=== PATIENT | male | born 1955 | race Caucasian/White ===

== ENCOUNTER 2017-02-21 10:05 | Observation (INO) | payer MEDICARE, MEDICAID ==
[2017-02-21] VITALS (9 sets, daily range): BP systolic 158–198; BP diastolic 88–101; PULSE 63–71; RESP 16–18; TEMP 97.8–98.8; O2SAT 93–98
[~2017-02-21] VITALS: Ht 182.9 cm; Wt 110.0 kg
[~2017-02-21 10:05] MED LIST: ALPH1000 PO; BENZ1TAB PO; BUPR-86 PO; CALTTAB PO; CEPH500C3 PO; CITA20TA4 PO; DOK100TA PO; LISI-363 PO; LORTA5 PO; NUED20CA PO; OLAN10TA PO; OLAN20TA PO; RANI150T PO; SPIRCAP INH; SYMB160A INH; TRAZ150T75 PO; TYLE500T PO
--- NOTE | 2017-02-21 10:28 | PD ---
HPI Chief Complaint: Chest Pain Time Seen by Provider: 10:28 Travel History International Travel<30 days: No Contact w/Intl Traveler<30days: No Traveled to known affect area: No History of Present Illness HPI 61-year-old male came to the emergency room with history of right sided chest pain. Patient lives in a [place] [facility] and they sent him here because this morning when he woke up he was complaining about the pain. Patient is not the best historian. He has history of schizophrenia and is on a lot of psych medications. It is difficult to understand his words but he did point to the right side of his chest saying that he woke up with this pain. Pain is nonradiating to the best of my understanding. No aggravating or relieving factors identified. He has never had this kind of pain in the past. Vital signs were otherwise stable. [facility] Past Medical History Narrative Medical List of his past medical, surgical, social and family history is reviewed from the nursing note. COPD: Yes Hypertension: Yes Schizophrenia: Yes Social History Alcohol Use: No Tobacco Use: No Substance Use: No Allergies-Medications (Allergen,Severity, Reaction): Coded Allergies: No Known Allergies (Unverified , 03/03/15) Comments No known drug allergies. Reported Meds & Prescriptions Reported Meds & Active Scripts Active Reported Loperamide (Loperamide HCl) 2 Mg Cap 2 Mg PO TID PRN MAX 3 CAPSULES/24HRS Vitamin E Water Soluble (Vitamin E) 1,000 Unit Cap 1,000 Units PO DAILY Trazodone (Trazodone HCl) 150 Mg Tablet 150 Mg PO HS Symbicort Inh (Budesonide/Formoterol Fumarate) 160-4.5 Mcg/Act Aero 2 Puff INH BID Zantac (Ranitidine HCl) 150 Mg Tab 150 Mg PO BID Zyprexa (Olanzapine) 20 Mg Tab 20 Mg PO HS Zyprexa (Olanzapine) 10 Mg Tab 10 Mg PO DAILY Take after lunch with a glass of water Nuedexta 20-10 mg (Dextromethorphan HBr-Quinidine) 20 Mg-10 Mg Cap 1 Cap PO Q12HR Mobic (Meloxicam) 15 Mg Tab 15 Mg PO DAILY Lisinopril 40 Mg Tab 40 Mg PO DAILY Aricept (Donepezil HCl) 10 Mg Tablet 10 Mg PO BID Each morning and at bedtime Colace (Docusate Sodium) 100 Mg Capsule 100 Mg PO DAILY Celexa (Citalopram Hydrobromide) 20 Mg Tab 30 Mg PO DAILY Calcium 600+D (Calcium Carbonate-Cholecalciferol) 600-800 Mg-Unit Tab 1 Tab PO BID Wellbutrin SR 12 HR (Bupropion HCl) 150 Mg Tab 150 Mg PO BID Take in the morning and after lunch Benztropine (Benztropine Mesylate) 0.5 Mg Tab 1 Mg PO TID Norvasc (Amlodipine Besylate) 5 Mg Tab 5 Mg PO DAILY Tylenol Extra Strength (Acetaminophen) 500 Mg Tablet 500 Mg PO BID Narrative Medication List of his home medications reviewed from the nursing note. Review of Systems Except as stated in HPI: all other systems reviewed are Neg Cardiovascular: Positive: Chest Pain or Discomfort Physical Exam Narrative GENERAL: Awake, alert, no obvious distress SKIN: Focused skin assessment warm/dry. HEAD: Atraumatic. Normocephalic. EYES: Pupils equal and round. No scleral icterus. No injection or drainage. ENT: No nasal bleeding or discharge. Mucous membranes pink and moist. NECK: Trachea midline. No JVD. CARDIOVASCULAR: Regular rate and rhythm. No murmur appreciated. RESPIRATORY: No accessory muscle use. Clear to auscultation. Breath sounds equal bilaterally. GASTROINTESTINAL: Abdomen soft, non-tender, nondistended. Hepatic and splenic margins not palpable. MUSCULOSKELETAL: No obvious deformities. No clubbing. No cyanosis. No edema. NEUROLOGICAL: Awake and alert. No obvious cranial nerve deficits. Motor grossly within normal limits. Normal speech. PSYCHIATRIC: Appropriate mood and affect; insight and judgment normal. Data Data Last Documented VS Vital Signs Date Time Temp Pulse Resp B/P (MAP) Pulse Ox O2 Delivery O2 Flow Rate FiO2 02/21/17 12:00 64 16 177/88 (117) 94 Room Air 02/21/17 10:07 97.8 Orders Orders Electrocardiogram (02/21/17 10:38) Basic Metabolic Panel (Bmp) (02/21/17 10:38) Ckmb (Isoenzyme) Profile (02/21/17 10:38) Complete Blood Count With Diff (02/21/17 10:38) D-Dimer (02/21/17 10:38) Magnesium (Mg) (02/21/17 10:38) Prothrombin Time / Inr (Pt) (02/21/17 10:38) Act Partial Throm Time (Ptt) (02/21/17 10:38) Troponin I (02/21/17 10:38) Chest, Single Ap (02/21/17 10:38) Ecg Monitoring (02/21/17 10:38) Bilateral Bp Monitoring (02/21/17 10:38) Iv Access Insert/Monitor (02/21/17 10:38) Oximetry (02/21/17 10:38) Oxygen Administration (02/21/17 10:38) Sodium Chloride 0.9% Flush (Ns Flush) (02/21/17 10:45) Ketorolac Inj (Toradol Inj) (02/21/17 10:45) CKMB (02/21/17 10:50) CKMB% (02/21/17 10:50) Admit Order (Ed Use Only) (02/21/17 12:03) Labs Laboratory Tests Test 02/21/17 10:50 White Blood Count 8.5 TH/MM3 Red Blood Count 4.42 MIL/MM3 Hemoglobin 13.8 GM/DL Hematocrit 41.4 % Mean Corpuscular Volume 93.7 FL Mean Corpuscular Hemoglobin 31.2 PG Mean Corpuscular Hemoglobin Concent 33.3 % Red Cell Distribution Width 13.4 % Platelet Count 177 TH/MM3 Mean Platelet Volume 9.2 FL Neutrophils (%) (Auto) 80.1 % Lymphocytes (%) (Auto) 11.2 % Monocytes (%) (Auto) 8.5 % Eosinophils (%) (Auto) 0.0 % Basophils (%) (Auto) 0.2 % Neutrophils # (Auto) 6.8 TH/MM3 Lymphocytes # (Auto) 0.9 TH/MM3 Monocytes # (Auto) 0.7 TH/MM3 Eosinophils # (Auto) 0.0 TH/MM3 Basophils # (Auto) 0.0 TH/MM3 CBC Comment DIFF FINAL Differential Comment Prothrombin Time 11.0 SEC Prothromb Time International Ratio 1.0 RATIO Activated Partial Thromboplast Time 25.5 SEC D-Dimer Quantitative (PE/DVT) 0.43 MG/L FEU Blood Urea Nitrogen 14 MG/DL Creatinine 1.07 MG/DL Random Glucose 114 MG/DL Calcium Level 8.8 MG/DL Magnesium Level 2.3 MG/DL Sodium Level 139 MEQ/L Potassium Level 3.7 MEQ/L Chloride Level 106 MEQ/L Carbon Dioxide Level 26.5 MEQ/L Anion Gap 7 MEQ/L Estimat Glomerular Filtration Rate 70 ML/MIN Total Creatine Kinase 297 U/L Creatine Kinase MB 2.5 NG/ML Troponin I LESS THAN 0.02 NG/ML MDM Medical Decision Making Medical Screen Exam Complete: Yes Emergency Medical Condition: Yes Medical Record Reviewed: Yes Interpretation(s) Twelve-lead EKG was reviewed by me. Normal sinus rhythm, left axis deviation, LVH as per voltage criteria, nonspecific ST-T wave changes. Heart rate of 67 bpm. Differential Diagnosis ACS, non-STEMI, nonspecific chest pain Narrative Course 12:08 PM blood test results of back. They're within acceptable limits. D- dimer is negative. I'll admit him to the chest pain center so that the door closer can evaluate him and rule out ACS Procedures EKG Prior to Arrival: No Diagnosis Primary Impression: Chest pain Qualified Codes: R07.9 - Chest pain, unspecified Admitting Information Admitting Physician Requests: Observation Precious Torres MD Feb 21, 2017 10:28
[2017-02-21] MEDS ORDERED: KETOROLAC TROMETHAMINE 30 MG/ML (IVP) VIAL IV PUSH ONE ×2 (10:45)
[2017-02-21] MEDS ORDERED: SODIUM CHLORIDE 0.9% FLUSH 10 ML FLUSH IVF PRN ×2 (10:45)
[2017-02-21] MEDS ORDERED: ACET-822 PO ×2 (11:07)
[2017-02-21] MEDS ORDERED: AMLO5 PO ×2 (11:07)
[2017-02-21] MEDS ORDERED: NUED20CA PO ×2 (11:07)
[2017-02-21] MEDS ORDERED: SYMB160A INH ×2 (11:07)
[2017-02-21] MEDS ORDERED: ZANT150T2 PO ×2 (11:07)
[2017-02-21] MEDS ORDERED: COLA100C PO ×2 (11:07)
[2017-02-21] MEDS ORDERED: TRAZ1TAB45 PO ×2 (11:07)
[2017-02-21] MEDS ORDERED: LISI40TA PO ×2 (11:07)
[2017-02-21] MEDS ORDERED: CALC1TAB37 PO ×2 (11:07)
[2017-02-21] MEDS ORDERED: CELE20TA PO ×2 (11:07)
[2017-02-21] MEDS ORDERED: LOPE2CAP PO ×2 (11:07)
[2017-02-21] MEDS ORDERED: BENZ0.5T PO ×2 (11:07)
[2017-02-21] MEDS ORDERED: VITA-98 PO ×2 (11:07)
[2017-02-21] MEDS ORDERED: ARIC10TA2 PO ×2 (11:07)
[2017-02-21] MEDS ORDERED: BUPR150CR PO ×2 (11:07)
[2017-02-21] MEDS ORDERED: ZYPR10TA PO ×2 (11:07)
[2017-02-21] MEDS ORDERED: MOBI15TA PO ×2 (11:07)
[2017-02-21] MEDS ORDERED: ZYPR20TA PO ×2 (11:07)
--- NOTE | 2017-02-21 11:08 | RADRPT ---
EXAM DATE/TIME: 02/21/2017 10:43 [facility] COMPARISON: CHEST SINGLE AP, March 03, 2015, 14:19. INDICATIONS : Short of breath, nausea, dizziness. MEDICAL HISTORY : Chronic obstructive pulmonary disease. SURGICAL HISTORY : None. ENCOUNTER: Initial ACUITY: 3 days PAIN SCORE: 0/10 LOCATION: Bilateral chest FINDINGS: A single view of the chest demonstrates the lungs to be symmetrically aerated without evidence of mas s, infiltrate or effusion. The cardiomediastinal contours are unremarkable. Osseous structures are intact. CONCLUSION: No acute disease. Tomer Maloney MD FACR on February 21, 2017 at 11:07 Board Certified Radiologist. This report was verified electronically.
[2017-02-21 11:40] LABS: AUTOMATED NEUTROPHIL # 6.8 TH/MM3 (1.8-7.7); BASOPHIL % 0.2 % (0.0-2.0); HEMATOCRIT 41.4 % (39.0-51.0); HEMOGLOBIN 13.8 GM/DL (13.0-17.0); LYMPH % 11.2 % (9.0-44.0); LYMPHOCYTE # 0.9 TH/MM3 (1.0-4.8); MEAN CELL VOLUME 93.7 FL (80.0-100.0); MEAN CORPUSCULAR HEMOGLOBIN 31.2 PG (27.0-34.0); MEAN CORPUSCULAR HGB CONC 33.3 % (32.0-36.0); MEAN PLATELET VOLUME 9.2 FL (7.0-11.0); MONO % 8.5 % (0.0-8.0); MONOCYTE # 0.7 TH/MM3 (0-0.9); NEUT % 80.1 % (16.0-70.0); PLATELET COUNT 177 TH/MM3 (150-450); RED BLOOD COUNT 4.42 MIL/MM3 (4.50-5.90); RED CELL DISTRIBUTION WIDTH 13.4 % (11.6-17.2); WHITE BLOOD COUNT 8.5 TH/MM3 (4.0-11.0)
[2017-02-21 11:43] LABS: TROPONIN I LESS THAN 0.02 NG/ML (0.02-0.05)
[2017-02-21 11:47] LABS: BICARBONATE 26.5 MEQ/L (21.0-32.0); BLOOD UREA NITROGEN 14 MG/DL (7-18); CALCIUM 8.8 MG/DL (8.5-10.1); CHLORIDE 106 MEQ/L (98-107); CREATININE 1.07 MG/DL (0.60-1.30); D-DIMER 0.43 MG/L FEU (0.00-0.50); GLOMERULAR FILTRATION RATE 70 ML/MIN (>89); GLUCOSE,RANDOM 114 MG/DL (74-106); MAGNESIUM 2.3 MG/DL (1.5-2.5); SODIUM (NA) 139 MEQ/L (136-145)
--- NOTE | 2017-02-21 12:38 | HHI.HP ---
HPI Primary Care Physician Unknown Chief Complaint Chest pain History of Present Illness 61-year-old male who resides at a senior care and is a poor historian presents to emergency room for further evaluation of chest pain. Onset upon waking up. Location right anterior chest. Made worse when moving right shoulder. Duration has been constant. Associated symptoms of shortness of breath relates to current nasal congestion. No known precipitating or relieving factors. Endorses he is a current smoker. Review of Systems General: No fatigue,weakness, fever, chills. HEENT: Current nasal congestion CV: Continues to have chest pain as stated above. RESP: No SOB, cough, or sputum production. Current smoker. GI: No nausea, vomiting, or bowel changes. EXT: No lower leg edema MS: As stated above, right anterior chest pain since this am made worse with movement of right shoulder. No change in ROM or recent injury. NEURO: No LOC, motor/sensory deficits PSYCH: No anxiety or depression Past Family Social History Allergies: Coded Allergies: No Known Allergies (Unverified , 03/03/15) Past Medical History Past medical history obtained from medical record as patient is a poor historian. Hypertension, schizophrenia, COPD Reported Medications Reported Meds & Active Scripts Active Reported Loperamide (Loperamide HCl) 2 Mg Cap 2 Mg PO TID PRN MAX 3 CAPSULES/24HRS Vitamin E Water Soluble (Vitamin E) 1,000 Unit Cap 1,000 Units PO DAILY Trazodone (Trazodone HCl) 150 Mg Tablet 150 Mg PO HS Symbicort Inh (Budesonide/Formoterol Fumarate) 160-4.5 Mcg/Act Aero 2 Puff INH BID Zantac (Ranitidine HCl) 150 Mg Tab 150 Mg PO BID Zyprexa (Olanzapine) 20 Mg Tab 20 Mg PO HS Zyprexa (Olanzapine) 10 Mg Tab 10 Mg PO DAILY Take after lunch with a glass of water Nuedexta 20-10 mg (Dextromethorphan HBr-Quinidine) 20 Mg-10 Mg Cap 1 Cap PO Q12HR Mobic (Meloxicam) 15 Mg Tab 15 Mg PO DAILY Lisinopril 40 Mg Tab 40 Mg PO DAILY Aricept (Donepezil HCl) 10 Mg Tablet 10 Mg PO BID Each morning and at bedtime Colace (Docusate Sodium) 100 Mg Capsule 100 Mg PO DAILY Celexa (Citalopram Hydrobromide) 20 Mg Tab 30 Mg PO DAILY Calcium 600+D (Calcium Carbonate-Cholecalciferol) 600-800 Mg-Unit Tab 1 Tab PO BID Wellbutrin SR 12 HR (Bupropion HCl) 150 Mg Tab 150 Mg PO BID Take in the morning and after lunch Benztropine (Benztropine Mesylate) 0.5 Mg Tab 1 Mg PO TID Norvasc (Amlodipine Besylate) 5 Mg Tab 5 Mg PO DAILY Tylenol Extra Strength (Acetaminophen) 500 Mg Tablet 500 Mg PO BID Active Ordered Medications Current Medications Medications (Trade) Dose Ordered Sig/Karthik Route Start Time Stop Time Status Last Admin (NS Flush) 2 ml UNSCH PRN IVF 02/21/17 10:45 (NS Flush) 2 ml UNSCH PRN IV FLUSH 02/21/17 12:45 UNV (NS Flush) 2 ml BID IV FLUSH 02/21/17 21:00 UNV (Tylenol) 500 mg Q4H PRN PO 02/21/17 12:45 UNV (Zofran Inj) 4 mg Q6H PRN IV PUSH 02/21/17 12:45 UNV (Nitrostat Sl) 0.4 mg Q5M PRN SL 02/21/17 12:45 UNV (Aspirin) 325 mg DAILY PO 02/22/17 09:00 UNV Family History Unknown Social History Known hypertension. No known hyperlipidemia or diabetes. Current smoker one pack/daily. Reports occasional beer. Resides in a senior care. Past medical testing Doesn't recall ever having any cardiac testing. Physical Exam Vital Signs Vital Signs Date Time Temp Pulse Resp B/P (MAP) Pulse Ox O2 Delivery O2 Flow Rate FiO2 02/21/17 10:41 63 17 162/101 (121) 98 Room Air 02/21/17 10:25 98 Room Air 02/21/17 10:25 98 Room Air 02/21/17 10:25 66 20 92 Room Air 02/21/17 10:07 97.8 71 18 198/97 (130) 96 Room Air Physical Exam GENERAL: Alert WN, WD, NAD, male who appears older than stated age who is a poor historian and difficult to understand. Speaks mumbled tone. HEAD: NC, AT EYES: Sclera clear, conjunctiva without injection ENT: Mucous membranes pink and moist CV: RRR, without murmur, rub, gallop, no JVD, S1-S2 no S3-S4. RESP: diminished lungs throughout bilateral, no crackles, wheeze, rhonchi, symmetrical chest rise, nonlabored, able to speak in full sentences ABD: Soft, NT, ND EXT: Pulses +24, no dependent edema MS: Normal tone 4 extremities, no obvious deformities, full range of motion. right anterior chest pain reproducible with palpation. NEURO: CN II through CN XII grossly intact, motor strength 5/5 PSYCH: A+O 3, pleasant affect, appropriate speech, appropriate mood and affect , insight and judgment SKIN: Normal turgor, normal texture, even hair distribution Laboratory Laboratory Tests Test 02/21/17 10:50 White Blood Count 8.5 Red Blood Count 4.42 Hemoglobin 13.8 Hematocrit 41.4 Mean Corpuscular Volume 93.7 Mean Corpuscular Hemoglobin 31.2 Mean Corpuscular Hemoglobin Concent 33.3 Red Cell Distribution Width 13.4 Platelet Count 177 Mean Platelet Volume 9.2 Neutrophils (%) (Auto) 80.1 Lymphocytes (%) (Auto) 11.2 Monocytes (%) (Auto) 8.5 Eosinophils (%) (Auto) 0.0 Basophils (%) (Auto) 0.2 Neutrophils # (Auto) 6.8 Lymphocytes # (Auto) 0.9 Monocytes # (Auto) 0.7 Eosinophils # (Auto) 0.0 Basophils # (Auto) 0.0 CBC Comment DIFF FINAL Differential Comment Prothrombin Time 11.0 Prothromb Time International Ratio 1.0 Activated Partial Thromboplast Time 25.5 D-Dimer Quantitative (PE/DVT) 0.43 Blood Urea Nitrogen 14 Creatinine 1.07 Random Glucose 114 Calcium Level 8.8 Magnesium Level 2.3 Sodium Level 139 Potassium Level 3.7 Chloride Level 106 Carbon Dioxide Level 26.5 Anion Gap 7 Estimat Glomerular Filtration Rate 70 Total Creatine Kinase 297 Creatine Kinase MB 2.5 Troponin I LESS THAN 0.02 Result Diagram: 02/21/17 1050 02/21/17 1050 Imaging Last Impressions Chest X-Ray 02/21/17 1038 Signed Impressions: Service Date/Time: Tuesday, February 21, 2017 10:43 - CONCLUSION: No acute disease. Tomer Maloney MD FACR Course EKG Caprini VTE Risk Assessment Caprini VTE Risk Assessment: Mod/High Risk (score >= 2) Caprini Risk Assessment Model Point Value = 1 Point Value = 2 Point Value = 3 Point Value = 5 Age 41-60 Minor surgery BMI > 25 kg/m2 Swollen legs Varicose veins or History of unexplained or recurrent spontaneous Oral contraceptives or hormone replacement Sepsis (< 1 month) Serious lung disease, including pneumonia (< 1 month) Abnormal pulmonary function Acute myocardial infarction Congestive heart failure (< 1 month) History of inflammatory bowel disease Medical patient at bed rest Age 61-74 Arthroscopic surgery Major open surgery (> 45 min) Laparoscopic surgery (> 45 min) Malignancy Confined to bed (> 72 hours) Immobilizing plaster cast Central venous access Age >= 75 History of VTE Family history of VTE Factor V Leiden Prothrombin [id number] Lupus anticoagulant Anticardiolipin antibodies Elevated serum homocysteine Heparin-induced thrombocytopenia Other congenital or acquired thrombophilia Stroke (< 1 month) Elective arthroplasty Hip, pelvis, or leg fracture Acute spinal cord injury (< 1 month) Prophylaxis Regimen Total Risk Factor Score Risk Level Prophylaxis Regimen 0-1 Low Early ambulation 2 Moderate Order ONE of the following: *Sequential Compression Device (SCD) *Heparin 5000 units SQ BID 3-4 Higher Order ONE of the following medications: *Heparin 5000 units SQ TID *Enoxaparin/Lovenox 40 mg SQ daily (WT < 150 kg, CrCl > 30 mL/min) *Enoxaparin/Lovenox 30 mg SQ daily (WT < 150 kg, CrCl > 10-29 mL/min) *Enoxaparin/Lovenox 30 mg SQ BID (WT < 150 kg, CrCl > 30 mL/min) AND/OR *Sequential Compression Device (SCD) 5 or more Highest Order ONE of the following medications: *Heparin 5000 units SQ TID (Preferred with Epidurals) *Enoxaparin/Lovenox 40 mg SQ daily (WT < 150 kg, CrCl > 30 mL/min) *Enoxaparin/Lovenox 30 mg SQ daily (WT < 150 kg, CrCl > 10-29 mL/min) *Enoxaparin/Lovenox 30 mg SQ BID (WT < 150 kg, CrCl > 30 mL/min) AND *Sequential Compression Device (SCD) Assessment and Plan Assessment and Plan #1 Atypical chest pain-admitted to chest pain center. Seen and evaluated by Dr. Agustin Romero. Plan was to ruled out with 2 sets of EKGs and cardiac enzymes, followed by a chemical stress test however patient had caffeine today. Resting images can be done this afternoon and stress images in morning. Patient agreeable to plan. #2 Hypertension-continue amlodipine and lisinopril #3 Schizophrenia-continue all home antipsychotic medications #4 Tobacco use-is encouraged and stressed the importance of tobacco cessation. Instructed him to quit smoking. #5 GERD-continue ranitidine Nancy Welch Feb 21, 2017 12:38
[2017-02-21] MEDS ORDERED: NITROGLYCERIN 0.4 MG SL 25 TABS/BTL SL PRN ×2 (12:45)
[2017-02-21] MEDS ORDERED: ACETAMINOPHEN 500 MG CPLT PO PRN ×2 (12:45)
[2017-02-21] MEDS ORDERED: ONDANSETRON HCL 4 MG/2 ML VIAL IV PUSH PRN ×2 (12:45)
[2017-02-21] MEDS ORDERED: SODIUM CHLORIDE 0.9% FLUSH 10 ML FLUSH IV FLUSH PRN ×2 (12:45)
[2017-02-21 14:26] LABS: TROPONIN I LESS THAN 0.02 NG/ML (0.02-0.05)
[2017-02-21 17:57] LABS: TROPONIN I LESS THAN 0.02 NG/ML (0.02-0.05)
[2017-02-21] MEDS ORDERED: PILL SPLITTER OTHER PRN ×2 (18:45)
[2017-02-21] MEDS: BENZTROPINE MESYLATE 1 MG TAB PO SCH ×2 (18:53)
[2017-02-21] MEDS ORDERED: NON-FORMULARY DRUG (Donepezil HCl (Aricept) 10 MG) PO SCH ×2 (21:00)
[2017-02-21] MEDS ORDERED: OLANZapine 10 MG TAB PO SCH ×2 (21:00)
[2017-02-21] MEDS ORDERED: NON-FORMULARY DRUG (Dextromethorphan HBr-Quinidine (Nuedexta 20-10 mg) 1 CAP) PO SCH ×2 (21:00)
[2017-02-21] MEDS ORDERED: CALCIUM CARBONATE CHOLECALCIFEROL PO SCH ×2 (21:00)
[2017-02-21] MEDS ORDERED: traZODone HCL 50 MG TAB PO SCH ×2 (21:00)
[2017-02-21] MEDS ORDERED: NON-FORMULARY DRUG (Trazodone 150 MG) PO SCH ×2 (21:00)
[2017-02-21] MEDS ORDERED: DEXTROMETHORPHAN PO SCH ×2 (21:00)
[2017-02-21] MEDS ORDERED: NON-FORMULARY DRUG (Ranitidine (Zantac) 150 MG) PO SCH ×2 (21:00)
[2017-02-21] MEDS ORDERED: QUINIDINE PO SCH ×2 (21:00)
[2017-02-21] MEDS: CALCIUM/VITAMIN D 250 MG/125 U TAB PO SCH ×2 (21:37)
[2017-02-21] MEDS: DONEPEZIL HCL 5 MG TAB PO SCH ×2 (21:39)
[2017-02-21] MEDS: FAMOTIDINE 20 MG TAB PO SCH ×2 (21:40)
[2017-02-21] MEDS: buPROPion HCL 150 MG SUSTAINED RELEASE TAB PO SCH ×2 (21:40)
[2017-02-21] MEDS: SODIUM CHLORIDE 0.9% FLUSH 10 ML FLUSH IV FLUSH SCH ×2 (21:41)
[2017-02-21] MEDS: BUDESONIDE-FORMOTEROL 160/4.5 MCG INHALER INH SCH ×2 (21:41)
[2017-02-22 03:33] VITALS: BP 156/97; PULSE 74; RESP 19; TEMP 98.7; O2SAT 94
[2017-02-22 04:10] VITALS: PULSE 73
[2017-02-22 08:11] VITALS: BP 182/98; PULSE 82; RESP 19; TEMP 98.7; O2SAT 93
[2017-02-22] MEDS ORDERED: ASPIRIN 325 MG TAB PO SCH ×2 (09:00)
[2017-02-22] MEDS ORDERED: LISINOPRIL 20 MG TAB PO SCH ×2 (09:00)
[2017-02-22] MEDS ORDERED: amLODIPine BESYLATE 5 MG TAB PO SCH ×2 (09:00)
[2017-02-22] MEDS ORDERED: OLANZapine 10 MG TAB PO SCH ×2 (09:00)
[2017-02-22] MEDS ORDERED: NON-FORMULARY DRUG (Lisinopril 40 MG) PO SCH ×2 (09:00)
[2017-02-22] MEDS: SODIUM CHLORIDE 0.9% FLUSH 10 ML FLUSH IV FLUSH SCH ×2 (09:00)
[2017-02-22] MEDS ORDERED: CITALOPRAM HYDROBROMIDE 20 MG TAB PO SCH ×2 (09:00)
[2017-02-22] MEDS: DONEPEZIL HCL 5 MG TAB PO SCH ×2 (09:38)
[2017-02-22] MEDS: FAMOTIDINE 20 MG TAB PO SCH ×2 (09:39)
[2017-02-22] MEDS: buPROPion HCL 150 MG SUSTAINED RELEASE TAB PO SCH ×2 (09:39)
[2017-02-22] MEDS: CALCIUM/VITAMIN D 250 MG/125 U TAB PO SCH ×2 (09:40)
[2017-02-22] MEDS: BENZTROPINE MESYLATE 1 MG TAB PO SCH ×4 (09:40→13:27)
[2017-02-22] MEDS: BUDESONIDE-FORMOTEROL 160/4.5 MCG INHALER INH SCH ×2 (09:41)
[2017-02-22] MEDS ORDERED: REGADENOSON INJ 0.4 MG/5 ML SYR ONE ×2 (10:30)
--- NOTE | 2017-02-22 11:47 | RADRPT ---
EXAM DATE/TIME: 02/21/2017 16:02 [facility] COMPARISON: No previous studies available for comparison. INDICATIONS : Right sided chest pain for one day. Angina. DOSE: 30.1 mCi Tc99m Myoview at stress. 30.2 mCi Tc99m Myoview at rest. 0.4 mg Lexiscan STRESS SYMPTOMS: None. EJECTION FRACTION: 35% MEDICAL HISTORY : Chronic obstructive pulmonary disease. Hypertension. SURGICAL HISTORY : None. ENCOUNTER: Initial ACUITY: 1 day PAIN SCALE: 5/10 LOCATION: Right chest TECHNIQUE: The patient underwent pharmacologic stress with infusion of prescribed dose. Continuous ECG tracing was monitored during stress. Gated SPECT imaging was performed after stress and conventional SPECT i maging was performed at rest. The examination was performed on a SPECT/CT scanner, both attenuation and non-corrected datasets were reviewed. FINDINGS: DISTRIBUTION: The maximum perfused segment at stress is in the septal wall. PERFUSION STUDY: The pattern of perfusion at stress is within normal limits. GATED STUDY: Diffuse global hypokinesis. CONCLUSION: 1. No evidence of ischemic myocardial changes. 2. Diffuse global hypokinesis with a cardiac ejection fraction of 35%. RISK CATEGORY: low Lorenzo Stoll MD on February 22, 2017 at 11:44 Board Certified Radiologist. This report was verified electronically.
[2017-02-22 11:58] VITALS: BP 157/98; PULSE 108; RESP 18; TEMP 98.9; O2SAT 93
--- NOTE | 2017-02-22 12:22 | HHI.DCPOC ---
Discharge Care Plan Diagnosis: (1) Tobacco abuse (2) Chest pain, atypical (3) schizophrenia by history (4) HTN (hypertension) Goals to Promote Your Health * To prevent worsening of your condition and complications * To maintain your health at the optimal level Directions to Meet Your Goals Take your medications as prescribed Follow your dietary instruction Follow activity as directed Keep your appointments as scheduled Take your immunizations and boosters as scheduled If your symptoms worsen call your PCP, if no PCP go to Urgent Care Center or Emergency Room Smoking is Dangerous to Your Health. Avoid second hand smoke Call the 24-hour hour crisis hotline for domestic abuse at Ayad Rodriguez Feb 22, 2017 12:22
--- NOTE | 2017-02-22 12:22 | HHI.DCPOC ---
Discharge Care Plan Diagnosis: (1) Tobacco abuse (2) Chest pain, atypical (3) schizophrenia by history (4) HTN (hypertension) Goals to Promote Your Health * To prevent worsening of your condition and complications * To maintain your health at the optimal level Directions to Meet Your Goals Take your medications as prescribed Follow your dietary instruction Follow activity as directed Keep your appointments as scheduled Take your immunizations and boosters as scheduled If your symptoms worsen call your PCP, if no PCP go to Urgent Care Center or Emergency Room Smoking is Dangerous to Your Health. Avoid second hand smoke Call the 24-hour hour crisis hotline for domestic abuse at Ayad Rodriguez Feb 22, 2017 12:22
--- NOTE | 2017-02-22 12:22 | HHI.DCPOC ---
Discharge Care Plan Diagnosis: (1) Tobacco abuse (2) Chest pain, atypical (3) schizophrenia by history (4) HTN (hypertension) Goals to Promote Your Health * To prevent worsening of your condition and complications * To maintain your health at the optimal level Directions to Meet Your Goals Take your medications as prescribed Follow your dietary instruction Follow activity as directed Keep your appointments as scheduled Take your immunizations and boosters as scheduled If your symptoms worsen call your PCP, if no PCP go to Urgent Care Center or Emergency Room Smoking is Dangerous to Your Health. Avoid second hand smoke Call the 24-hour hour crisis hotline for domestic abuse at Ayad Rodriguez Feb 22, 2017 12:22
--- NOTE | 2017-02-23 08:15 | EKG ---
Date Performed: 02/21/2017 Time Performed: 17:18:42 PTAGE: 61 years EKG: Sinus rhythm MINIMAL VOLTAGE CRITERIA FOR LVH, CONSIDER NORMAL VARIANT BORDERLINE ECG PREVIOUS TRACING : 02/21/2017 13.37 Since previous tracing, no significant change noted DOCTOR: Agustin Romero Interpretating Date/Time 02/23/2017 08:15:04
--- NOTE | 2017-02-23 08:18 | EKG ---
Date Performed: 02/21/2017 Time Performed: 13:37:17 PTAGE: 61 years EKG: Sinus rhythm MINIMAL VOLTAGE CRITERIA FOR LVH, CONSIDER NORMAL VARIANT BORDERLINE ECG PREVIOUS TRACING : 02/21/2017 10.25 Since previous tracing, no significant change noted DOCTOR: Agustin Romero Interpretating Date/Time 02/23/2017 08:17:02
--- NOTE | 2017-02-23 08:19 | EKG ---
Date Performed: 02/21/2017 Time Performed: 10:25:52 PTAGE: 61 years EKG: Sinus rhythm MINIMAL VOLTAGE CRITERIA FOR LVH, CONSIDER NORMAL VARIANT BORDERLINE ECG PREVIOUS TRACING : 03/03/2015 14.37 Since previous tracing, no significant change noted DOCTOR: Agustin Romero Interpretating Date/Time 02/23/2017 08:17:53
--- NOTE | 2017-02-23 08:21 | TR ---
Date Performed: 02/22/2017 Time Performed: 10:27:24 DOCTOR: Agustin Romero DRUG LIST: CLINICAL HISTORY: ANGINA REASON FOR TEST: Angina REASON FOR ENDING: OBSERVATION: CONCLUSION: Lexiscan stress test was performed under standard four minute protocol. Radionuclid e was injected one minute prior to ending the test. No electrocardiographic abormalities were present to suggest ischemia. Nuclear imaging and interpretation are pending. COMMENTS:
== END 2017-02-22 15:41 ==
LOC: NEPE 10:05 → NEDA 12:05 → NEPHCDU 14:26 → NEDA 02-22 02:07
PROVIDERS: ADMIT Internal Medicine Cardiovascular Disease; ATTEND Internal Medicine Cardiovascular Disease
DX: R07.9 Chest pain, unspecified (principal); I10 Essential (primary) hypertension; F20.9 Schizophrenia, unspecified; J44.9 Chronic obstructive pulmonary disease, unspecified; K21.9 Gastro-esophageal reflux disease without esophagitis; R94.31 Abnormal electrocardiogram [ECG] [EKG]; F17.200 Nicotine dependence, unspecified, uncomplicated
CPT/HCPCS: 71010; 78452; 80048; 82550; 82552; 83735; 84484; 85025; 85379; 85610; 85730; 93005; 93017; 96374; 99285; A9502; G0378; J1885; J2785

== ENCOUNTER 2017-10-08 05:14 | Observation (INO) | payer MEDICARE, MEDICAID ==
[~2017-10-08] VITALS: Ht 185.4 cm; Wt 100.0 kg
[~2017-10-08 05:14] MED LIST changes: +ACET-822 PO; -ALPH1000 PO; +AMLO5 PO; +ARIC10TA9 PO; +BENZ0.5T PO; -BENZ1TAB PO; -BUPR-86 PO; +BUPR150CR PO; +CALC1TAB37 PO; -CALTTAB PO; +CELE20TA PO; -CEPH500C3 PO; -CITA20TA4 PO; +COLA100C5 PO; -DOK100TA PO; -LISI-363 PO; +LISI40TA PO; +LOPE2CAP PO; -LORTA5 PO; +MOBI15TA PO; -OLAN10TA PO; -OLAN20TA PO; -RANI150T PO; -SPIRCAP INH; -TRAZ150T75 PO; +TRAZ1TAB14 PO; -TYLE500T PO; +VITA-141 PO; +ZANT150T2 PO; +ZYPR10TA PO; +ZYPR20TA PO
[2017-10-08 05:20] VITALS: BP 185/98; PULSE 65; RESP 17; O2SAT 94
[2017-10-08 05:40] LABS: AUTOMATED NEUTROPHIL # 5.9 TH/MM3 (1.8-7.7); BASOPHIL % 0.2 % (0.0-2.0); HEMATOCRIT 41.3 % (39.0-51.0); HEMOGLOBIN 13.7 GM/DL (13.0-17.0); MEAN CELL VOLUME 92.6 FL (80.0-100.0); MEAN CORPUSCULAR HEMOGLOBIN 30.8 PG (27.0-34.0); MEAN CORPUSCULAR HGB CONC 33.2 % (32.0-36.0); MEAN PLATELET VOLUME 9.3 FL (7.0-11.0); MONO % 8.3 % (0.0-8.0); MONOCYTE # 0.6 TH/MM3 (0-0.9); NEUT % 78.5 % (16.0-70.0); PLATELET COUNT 165 TH/MM3 (150-450); RED BLOOD COUNT 4.46 MIL/MM3 (4.50-5.90); RED CELL DISTRIBUTION WIDTH 13.8 % (11.6-17.2); WHITE BLOOD COUNT 7.5 TH/MM3 (4.0-11.0)
[2017-10-08] MEDS ORDERED: ASPI-516 CHEW (05:40)
[2017-10-08] MEDS ORDERED: ATOR10TA15 PO (05:40)
[2017-10-08 05:58] LABS: PROTHROMBIN TIME - PATIENT 10.4 SEC (9.8-11.6)
--- NOTE | 2017-10-08 05:58 | PD ---
HPI Chief Complaint: Chest Pain Time Seen by Provider: 05:20 Travel History International Travel<30 days: No Contact w/Intl Traveler<30days: No Traveled to known affect area: No History of Present Illness HPI The patient is a 62 year old male who presents to the [facility] emergency department with a history of chest pain that he reports awoken from sound sleep prior to arrival. He reports that the pain has been constant and is in the left side of his chest. The patient denies having any radiation of pain the patient has difficulty quantifying the character of the pain. He reports that the pain is just "a pain". He denies having any nausea or vomiting associated with this. He also denies having any diaphoresis or shortness of breath. He reports that he does occasionally have indigestion. Unfortunately, the patient is a poor historian regarding his medical history. The patient also has mumbling speech making it difficult to understand what he is saying. From reviewing the record, the patient usually speaks in this fashion. On review of systems otherwise, the patient denies having any known recent fevers, cough or congestion, neck pain, abdominal pain, diarrhea, urinary symptoms, or neurologic symptoms. [facility] Past Medical History Narrative Medical The patient's past medical history is significant for according to the electronic medical record hypertension, hyperlipidemia, schizophrenia, COPD, indigestion. Alzheimer's Disease: Yes Anxiety: Yes Depression: Yes Heart Rhythm Problems: No Cardiac Catheterization: No Cardiovascular Problems: No High Cholesterol: No Congestive Heart Failure: No COPD: Yes Diabetes: No Diminished Hearing: No Hypertension: Yes Schizophrenia: Yes ?: Not Past Surgical History Narrative Surgical The patient's past surgical history is reportedly none. Coronary Artery Bypass Graft: No Social History Alcohol Use: Yes (Occasional use) Tobacco Use: Yes (1 pack per day) Substance Use: No Allergies-Medications (Allergen,Severity, Reaction): Coded Allergies: No Known Allergies (Unverified Allergy, Unknown, 10/08/17) Reported Meds & Prescriptions Reported Meds & Active Scripts Active Reported Atorvastatin (Atorvastatin Calcium) 10 Mg Tab 10 Mg PO HS Aspirin 81 Mg Chew 81 Mg CHEW ONCE Vitamin E Water Soluble (Vitamin E) 1,000 Unit Cap 1,000 Units PO DAILY Trazodone (Trazodone HCl) 150 Mg Tablet 150 Mg PO HS Symbicort Inh (Budesonide/Formoterol Fumarate) 160-4.5 Mcg/Act Aero 2 Puff INH BID Zantac (Ranitidine HCl) 150 Mg Tab 150 Mg PO BID Zyprexa (Olanzapine) 20 Mg Tab 20 Mg PO HS Zyprexa (Olanzapine) 10 Mg Tab 10 Mg PO DAILY Take after lunch with a glass of water Nuedexta 20-10 mg (Dextromethorphan HBr-Quinidine) 20 Mg-10 Mg Cap 1 Cap PO Q12HR Mobic (Meloxicam) 15 Mg Tab 15 Mg PO DAILY Lisinopril 40 Mg Tab 40 Mg PO DAILY Aricept (Donepezil HCl) 10 Mg Tablet 10 Mg PO BID Each morning and at bedtime Colace (Docusate Sodium) 100 Mg Capsule 100 Mg PO DAILY Celexa (Citalopram Hydrobromide) 20 Mg Tab 30 Mg PO DAILY Calcium 600+D (Calcium Carbonate-Cholecalciferol) 600-800 Mg-Unit Tab 1 Tab PO BID Wellbutrin SR 12 HR (Bupropion HCl) 150 Mg Tab 150 Mg PO BID Take in the morning and after lunch Benztropine (Benztropine Mesylate) 0.5 Mg Tab 1 Mg PO TID Norvasc (Amlodipine Besylate) 5 Mg Tab 5 Mg PO DAILY Tylenol Extra Strength (Acetaminophen) 500 Mg Tablet 500 Mg PO BID Review of Systems Except as stated in HPI: all other systems reviewed are Neg General / Constitutional: No: Fever Eyes: No: Visual changes HENT: No: Headaches, Congestion Cardiovascular: Positive: Chest Pain or Discomfort, No: Dyspnea on exertion Respiratory: No: Cough, Shortness of Breath Gastrointestinal: No: Abdominal Pain Genitourinary: No: Dysuria Musculoskeletal: No: Pain Skin: No Rash Neurologic: No: Weakness, Focal Abnormalities, Change in Mentation, Sensory Disturbance Psychiatric: No: Depression Endocrine: No: Polydipsia Hematologic/Lymphatic: No: Easy Bruising Physical Exam Narrative General: The patient is a well-developed malnourished male in no acute distress. Head and Neck exam: Head is normocephalic atraumatic. Eyes: EOMI, pupils are equal round and reactive to light. Nose: Midline septum with pink mucous membranes Mouth: Dentition unremarkable. Moist mucus membranes. Posterior oropharynx is not erythematous. No tonsillar hypertrophy. Uvula midline. Airway patent. Neck: No palpable lymphadenopathy. No nuchal rigidity. No thyromegaly. Cardiovascular: Regular rate and rhythm without murmurs, gallops, or rubs. No pulse deficit to the extremities on simultaneous auscultation and palpation of his radial artery. Lungs: Clear to auscultation bilaterally. No wheezes, rhonchi, or rales. Abdomen: Soft, without tenderness to palpation in all 4 quadrants of the abdomen. No guarding, rebound, or rigidity. Normal bowel sounds are audible. No tenderness on palpation of McBurney's point. Negative Roberts sign. Extremities: No clubbing, cyanosis, or edema. 2+ pulses in all 4 extremities. No calf tenderness on palpation. Back: No spinous process tenderness to palpation. No costovertebral angle tenderness to palpation. Neurologic Exam: Grossly nonfocal. The patient speaks in mumbled tones, making it difficult to understand him. According to the electronic medical record he has spoken this way previously. Skin Exam: No rash noted. Intact skin that is warm and dry. Data Data Last Documented VS Vital Signs Date Time Temp Pulse Resp B/P (MAP) Pulse Ox O2 Delivery O2 Flow Rate FiO2 10/08/17 06:29 64 18 183/94 (123) 97 Room Air Orders Orders Electrocardiogram (10/08/17 05:29) Complete Blood Count With Diff (10/08/17 05:29) Comprehensive Metabolic Panel (10/08/17 05:29) Creatine Kinase (Cpk) (10/08/17 05:29) Ckmb (Isoenzyme) Profile (10/08/17 05:29) Troponin I (10/08/17 05:29) B-Type Natriuretic Peptide (10/08/17 05:29) Prothrombin Time / Inr (Pt) (10/08/17 05:29) Act Partial Throm Time (Ptt) (10/08/17 05:29) Lipase (10/08/17 05:29) Magnesium (Mg) (10/08/17 05:29) Chest, Single Ap (10/08/17 05:29) Iv Access Insert/Monitor (10/08/17 05:29) Ecg Monitoring (10/08/17 05:29) Oximetry (10/08/17 05:29) CKMB (10/08/17 05:30) CKMB% (10/08/17 05:30) Aspirin Chew (Aspirin Chew) (10/08/17 06:30) Nitroglycerin 2% Oint (Nitroglycerin 2% (10/08/17 06:30) Famotidine Inj (Pepcid Inj) (10/08/17 06:30) Admit Order (Ed Use Only) (10/08/17 06:41) Labs Laboratory Tests Test 10/08/17 05:30 White Blood Count 7.5 TH/MM3 Red Blood Count 4.46 MIL/MM3 Hemoglobin 13.7 GM/DL Hematocrit 41.3 % Mean Corpuscular Volume 92.6 FL Mean Corpuscular Hemoglobin 30.8 PG Mean Corpuscular Hemoglobin Concent 33.2 % Red Cell Distribution Width 13.8 % Platelet Count 165 TH/MM3 Mean Platelet Volume 9.3 FL Neutrophils (%) (Auto) 78.5 % Lymphocytes (%) (Auto) 13.0 % Monocytes (%) (Auto) 8.3 % Eosinophils (%) (Auto) 0.0 % Basophils (%) (Auto) 0.2 % Neutrophils # (Auto) 5.9 TH/MM3 Lymphocytes # (Auto) 1.0 TH/MM3 Monocytes # (Auto) 0.6 TH/MM3 Eosinophils # (Auto) 0.0 TH/MM3 Basophils # (Auto) 0.0 TH/MM3 CBC Comment DIFF FINAL Differential Comment Prothrombin Time 10.4 SEC Prothromb Time International Ratio 1.0 RATIO Activated Partial Thromboplast Time 23.1 SEC Blood Urea Nitrogen 14 MG/DL Creatinine 1.03 MG/DL Random Glucose 95 MG/DL Total Protein 6.3 GM/DL Albumin 3.6 GM/DL Calcium Level 7.8 MG/DL Magnesium Level 2.3 MG/DL Alkaline Phosphatase 53 U/L Aspartate Amino Transf (AST/SGOT) 17 U/L Alanine Aminotransferase (ALT/SGPT) 22 U/L Total Bilirubin 0.3 MG/DL Sodium Level 143 MEQ/L Potassium Level 3.4 MEQ/L Chloride Level 110 MEQ/L Carbon Dioxide Level 25.8 MEQ/L Anion Gap 7 MEQ/L Estimat Glomerular Filtration Rate 73 ML/MIN Total Creatine Kinase 151 U/L Creatine Kinase MB 1.3 NG/ML Troponin I LESS THAN 0.02 NG/ML B-Type Natriuretic Peptide 25 PG/ML Lipase 44 U/L MDM Medical Decision Making Medical Screen Exam Complete: Yes Emergency Medical Condition: Yes Medical Record Reviewed: Yes Differential Diagnosis Acute coronary syndrome, versus acid reflux, versus anxiety disorder, versus costochondritis, versus muscle strain Narrative Course During the course of the patient's emergency department visit, the patient's history, examination, and differential diagnosis were reviewed with the patient. The patient was placed on a monitor and storage bin tender with oximetry and frequent blood pressure monitoring. The patient had IV access obtained and blood work sent for analysis. The patient had a EKG done on arrival. The patient's EKG reveals a sinus rhythm heart rate of 60, QRS duration is 90 ms, QTC [address] segment elevation. The patient was initially provided aspirin 324 mg p.o. 1, famotidine 20 mg IV, nitroglycerin 1 inch the chest wall. The patient's laboratory studies were reviewed and remarkable for a CBC that shows a white count of 7.5, hemoglobin 13.7, platelets 165 with neutrophils 78.5. CMP is remarkable for potassium of 3.4, chloride 110, GFR 73, calcium 7.8 , cardiac enzymes within normal limits, BNP is within normal limits, lipase 44, PT 10.4, PTT 23.1. Radiology studies were reviewed and remarkable for Last Impressions Chest X-Ray 10/08/17 0520 Signed Impressions: CONCLUSION: Tortuous aorta. Clear lungs. The patient reports a history of chest pain that awoke him from sound sleep. The patient has a history of hyperlipidemia and hypertension. The patient will be admitted to the chest pain center for rule out serial cardiac enzyme protocol followed by consideration of stress testing. The patient's results were discussed with the patient, including the plan of care. I explained that further testing and/ or monitoring is indicated based on the patient's history, examination, and/ or laboratory findings. Therefore, I recommended admission for additional evaluation. The patient expressed understanding and was agreeable with this plan. The patient was admitted to the hospital in stable condition and sent to a bed under the care of the chest pain center. Diagnosis Primary Impression: Chest pain, rule out acute myocardial infarction Admitting Information Admitting Physician Requests: Charlene Voss MD Oct 08, 2017 05:58
[2017-10-08 05:59] LABS: ALBUMIN 3.6 GM/DL (3.4-5.0); ALT (GPT) 22 U/L (12-78); AST (GOT) 17 U/L (15-37); BICARBONATE 25.8 MEQ/L (21.0-32.0); BLOOD UREA NITROGEN 14 MG/DL (7-18); CALCIUM 7.8 MG/DL (8.5-10.1); CHLORIDE 110 MEQ/L (98-107); CREATININE 1.03 MG/DL (0.60-1.30); GLOMERULAR FILTRATION RATE 73 ML/MIN (>89); GLUCOSE,RANDOM 95 MG/DL (74-106); MAGNESIUM 2.3 MG/DL (1.5-2.5); SODIUM (NA) 143 MEQ/L (136-145)
[2017-10-08 06:03] LABS: ALKALINE PHOSPHATASE 53 U/L (45-117); TOTAL BILIRUBIN ADULT 0.3 MG/DL (0.2-1.0); TOTAL PROTEIN 6.3 GM/DL (6.4-8.2); TROPONIN I LESS THAN 0.02 NG/ML (0.02-0.05)
--- NOTE | 2017-10-08 06:17 | RADRPT ---
EXAM DATE: 10/08/2017 5:43 AM EDT AGE/SEX: 62 years / Male INDICATIONS: Chest pain. CLINICAL DATA: This is the patient's initial encounter. Patient reports that signs and symptoms have been present for 1 day and indicates a pain score of 6/10. MEDICAL/SURGICAL HISTORY: Chronic obstructive pulmonary disease. Hypertension. None. COMPARISON: [facility] [place], CHEST SINGLE AP, 02/21/2017. . FINDINGS: A single AP view of the chest demonstrates the lungs to be symmetrically aerated without evidence of mass, infiltrate or effusion. The cardiomediastinal contours are unremarkable. Osseous structures a re intact. Prominent tortuous aorta CONCLUSION: Tortuous aorta. Clear lungs. Electronically signed by: Anish De Guzman MD 10/08/2017 6:16 AM EDT
[2017-10-08 06:29] VITALS: BP_SYST 183; BP_SYST 193; BP_DIAS 94; BP_DIAS 98; PULSE 64; RESP 18; O2SAT 96; O2SAT 97
[2017-10-08] MEDS ORDERED: ASPIRIN 81 MG CHEW TAB CHEW ONE (06:30)
[2017-10-08] MEDS ORDERED: NITROGLYCERIN 2% OINT 1 GM PACKET TOPICAL ONE (06:30)
[2017-10-08] MEDS ORDERED: FAMOTIDINE 20 MG/2 ML VIAL IV PUSH SCH (06:30)
[2017-10-08] MEDS ORDERED: SODIUM CHLOR 0.9% 1000 ML INJ 1,000 ML IV SCH (06:43)
[2017-10-08] MEDS ORDERED: ACETAMINOPHEN 500 MG CPLT PO PRN (06:45)
[2017-10-08] MEDS ORDERED: SODIUM CHLORIDE 0.9% FLUSH 10 ML FLUSH IV FLUSH PRN (06:45)
[2017-10-08 07:28] VITALS: BP 157/86; PULSE 66; RESP 18; O2SAT 98
--- NOTE | 2017-10-08 08:25 | HHI.HP ---
HPI Primary Care Physician Primary Care Physician unknown Chief Complaint Chest pain History of Present Illness 62 year old male with history of hypertension, hyperlipidemia, current smoker, schizophrenia, and Alzheimer's presents emergency room for further evaluation of chest pain. Onset yesterday afternoon. Location left anterior chest. Unable to describe characteristic of pain. Moderate severity. Duration constant. Made worse with movement or taking a deep breath. No recent injury, trauma, or illness. Chronic daily nonproductive cough unchanged. Continues to have chest pain, reproduced with palpation. Review of Systems General: No fatigue, weakness, fever, chills, or recent illness. Resides in a fpc, has been his general state of health. HEENT: No HOOK, no vision changes, no nasal congestion or drainage CV: Continues to have chest pain as stated above. Made worse with movement, palpation, and deep breathing. RESP: No SOB, wheeze, or recent URI. Chronic daily nonproductive cough unchanged. GI: No nausea, vomiting, or bowel changes. : No dysuria, urgency, or frequency EXT: No lower leg edema MS: No injury or trauma NEURO: No dizziness, LOC, motor/sensory deficits PSYCH: History of schizophrenia. No suicidal ideation SKIN: No rashes, no concerning lesions Past Family Social History Allergies: Coded Allergies: No Known Allergies (Unverified Allergy, Unknown, 10/08/17) Past Medical History Hypertension, GERD, COPD, schizophrenia, hyperlipidemia Past Surgical History None Reported Medications Reported Meds & Active Scripts Active Reported Atorvastatin (Atorvastatin Calcium) 10 Mg Tab 10 Mg PO HS Aspirin 81 Mg Chew 81 Mg CHEW ONCE Vitamin E Water Soluble (Vitamin E) 1,000 Unit Cap 1,000 Units PO DAILY Trazodone (Trazodone HCl) 150 Mg Tablet 150 Mg PO HS Symbicort Inh (Budesonide/Formoterol Fumarate) 160-4.5 Mcg/Act Aero 2 Puff INH BID Zantac (Ranitidine HCl) 150 Mg Tab 150 Mg PO BID Zyprexa (Olanzapine) 20 Mg Tab 20 Mg PO HS Zyprexa (Olanzapine) 10 Mg Tab 10 Mg PO DAILY Take after lunch with a glass of water Nuedexta 20-10 mg (Dextromethorphan HBr-Quinidine) 20 Mg-10 Mg Cap 1 Cap PO Q12HR Mobic (Meloxicam) 15 Mg Tab 15 Mg PO DAILY Lisinopril 40 Mg Tab 40 Mg PO DAILY Aricept (Donepezil HCl) 10 Mg Tablet 10 Mg PO BID Each morning and at bedtime Colace (Docusate Sodium) 100 Mg Capsule 100 Mg PO DAILY Celexa (Citalopram Hydrobromide) 20 Mg Tab 30 Mg PO DAILY Calcium 600+D (Calcium Carbonate-Cholecalciferol) 600-800 Mg-Unit Tab 1 Tab PO BID Wellbutrin SR 12 HR (Bupropion HCl) 150 Mg Tab 150 Mg PO BID Take in the morning and after lunch Benztropine (Benztropine Mesylate) 0.5 Mg Tab 1 Mg PO TID Norvasc (Amlodipine Besylate) 5 Mg Tab 5 Mg PO DAILY Tylenol Extra Strength (Acetaminophen) 500 Mg Tablet 500 Mg PO BID Active Ordered Medications Current Medications Medications (Trade) Dose Ordered Sig/Karthik Route Start Time Stop Time Status Last Admin (Pepcid Inj) 20 mg NOW IV PUSH 10/08/17 06:30 10/08/17 06:31 Sodium Chloride 1,000 ml @ 100 mls/hr Q10H IV 10/08/17 06:43 10/08/17 07:28 (NS Flush) 2 ml UNSCH PRN IV FLUSH 10/08/17 06:45 (NS Flush) 2 ml BID IV FLUSH 10/08/17 09:00 (Tylenol) 500 mg Q4H PRN PO 10/08/17 06:45 Social History No known coronary artery disease or diabetes. Known hypertension and hyperlipidemia. Lifelong smoker, 1 pack/daily. Past cardiac testing 02/21/2017 Lexiscan-no perfusion abnormalities. Diffuse global hypokinesis and EF 35% Physical Exam Vital Signs Vital Signs Date Time Temp Pulse Resp B/P (MAP) Pulse Ox O2 Delivery O2 Flow Rate FiO2 10/08/17 07:28 66 18 157/86 (109) 98 Nasal Cannula 2.00 10/08/17 06:29 64 18 183/94 (123) 97 Room Air 10/08/17 05:20 65 17 185/98 (127) 94 Physical Exam GENERAL: Alert WN, WD, NAD, , moderately obese male who appears older than stated age, poor historian HEAD: NC, AT CV: RRR, without murmur, rub, gallop, no JVD, S1-S2 no S3-S4. Chest wall pain easily reproduced with palpation. RESP: Clear lungs throughout bilateral, no crackles, wheeze, rhonchi, symmetrical chest rise, nonlabored, able to speak in full sentences ABD: Soft, NT, ND, no masses, positive bowel tones EXT: Pulses +2x4, no dependent edema MS: Normal tone x4 extremities, no obvious deformities, full range of motion NEURO: Memory impaired. Motor strength 5/5 PSYCH: A+O x3, flat affect, appropriate mood. questionable insight and judgment. SKIN: Normal turgor, normal texture, no lesions, no rashes Laboratory Laboratory Tests Test 10/08/17 05:30 White Blood Count 7.5 Red Blood Count 4.46 Hemoglobin 13.7 Hematocrit 41.3 Mean Corpuscular Volume 92.6 Mean Corpuscular Hemoglobin 30.8 Mean Corpuscular Hemoglobin Concent 33.2 Red Cell Distribution Width 13.8 Platelet Count 165 Mean Platelet Volume 9.3 Neutrophils (%) (Auto) 78.5 Lymphocytes (%) (Auto) 13.0 Monocytes (%) (Auto) 8.3 Eosinophils (%) (Auto) 0.0 Basophils (%) (Auto) 0.2 Neutrophils # (Auto) 5.9 Lymphocytes # (Auto) 1.0 Monocytes # (Auto) 0.6 Eosinophils # (Auto) 0.0 Basophils # (Auto) 0.0 CBC Comment DIFF FINAL Differential Comment Prothrombin Time 10.4 Prothromb Time International Ratio 1.0 Activated Partial Thromboplast Time 23.1 Blood Urea Nitrogen 14 Creatinine 1.03 Random Glucose 95 Total Protein 6.3 Albumin 3.6 Calcium Level 7.8 Magnesium Level 2.3 Alkaline Phosphatase 53 Aspartate Amino Transf (AST/SGOT) 17 Alanine Aminotransferase (ALT/SGPT) 22 Total Bilirubin 0.3 Sodium Level 143 Potassium Level 3.4 Chloride Level 110 Carbon Dioxide Level 25.8 Anion Gap 7 Estimat Glomerular Filtration Rate 73 Total Creatine Kinase 151 Creatine Kinase MB 1.3 Troponin I LESS THAN 0.02 B-Type Natriuretic Peptide 25 Lipase 44 Result Diagram: 10/08/1752910/08/17 0530 Imaging Last 48 hours Impressions Chest X-Ray 10/08/17 0529 Signed Impressions: CONCLUSION: Tortuous aorta. Clear lungs. Course EKG Normal sinus rhythm, no ST changes, no specific T-wave changes Caprini VTE Risk Assessment Caprini VTE Risk Assessment: Mod/High Risk (score >= 2) Caprini Risk Assessment Model Point Value = 1 Point Value = 2 Point Value = 3 Point Value = 5 Age 41-60 Minor surgery BMI > 25 kg/m2 Swollen legs Varicose veins or History of unexplained or recurrent spontaneous Oral contraceptives or hormone replacement Sepsis (< 1 month) Serious lung disease, including pneumonia (< 1 month) Abnormal pulmonary function Acute myocardial infarction Congestive heart failure (< 1 month) History of inflammatory bowel disease Medical patient at bed rest Age 61-74 Arthroscopic surgery Major open surgery (> 45 min) Laparoscopic surgery (> 45 min) Malignancy Confined to bed (> 72 hours) Immobilizing plaster cast Central venous access Age >= 75 History of VTE Family history of VTE Factor V Leiden Prothrombin [id number] Lupus anticoagulant Anticardiolipin antibodies Elevated serum homocysteine Heparin-induced thrombocytopenia Other congenital or acquired thrombophilia Stroke (< 1 month) Elective arthroplasty Hip, pelvis, or leg fracture Acute spinal cord injury (< 1 month) Prophylaxis Regimen Total Risk Factor Score Risk Level Prophylaxis Regimen 0-1 Low Early ambulation 2 Moderate Order ONE of the following: *Sequential Compression Device (SCD) *Heparin 5000 units SQ BID 3-4 Higher Order ONE of the following medications: *Heparin 5000 units SQ TID *Enoxaparin/Lovenox 40 mg SQ daily (WT < 150 kg, CrCl > 30 mL/min) *Enoxaparin/Lovenox 30 mg SQ daily (WT < 150 kg, CrCl > 10-29 mL/min) *Enoxaparin/Lovenox 30 mg SQ BID (WT < 150 kg, CrCl > 30 mL/min) AND/OR *Sequential Compression Device (SCD) 5 or more Highest Order ONE of the following medications: *Heparin 5000 units SQ TID (Preferred with Epidurals) *Enoxaparin/Lovenox 40 mg SQ daily (WT < 150 kg, CrCl > 30 mL/min) *Enoxaparin/Lovenox 30 mg SQ daily (WT < 150 kg, CrCl > 10-29 mL/min) *Enoxaparin/Lovenox 30 mg SQ BID (WT < 150 kg, CrCl > 30 mL/min) AND *Sequential Compression Device (SCD) Assessment and Plan Assessment and Plan Musculoskeletal chest wall pain-admitted to chest pain center. Ruled out with 2 sets of EKGs and cardiac enzymes. Seen and evaluated by Dr. Agustin Romero. Discomfort easily reproduced, made worse with movement, and deep breathing. Recent Lexiscan without perfusion abnormalities February 2017. No further cardiac testing. Discharge this morning with follow up with PCP. Nancy Welch Oct 08, 2017 08:25
[2017-10-08] MEDS ORDERED: SODIUM CHLORIDE 0.9% FLUSH 10 ML FLUSH IV FLUSH SCH (09:00)
[2017-10-08 09:02] LABS: TROPONIN I LESS THAN 0.02 NG/ML (0.02-0.05)
--- NOTE | 2017-10-08 09:47 | HHI.DCPOC ---
Discharge Care Plan Diagnosis: (1) Musculoskeletal chest pain (2) Tobacco abuse Goals to Promote Your Health * To prevent worsening of your condition and complications * To maintain your health at the optimal level Directions to Meet Your Goals Take your medications as prescribed Follow your dietary instruction Follow activity as directed Keep your appointments as scheduled Take your immunizations and boosters as scheduled If your symptoms worsen call your PCP, if no PCP go to Urgent Care Center or Emergency Room Smoking is Dangerous to Your Health. Avoid second hand smoke Call the 24-hour hour crisis hotline for domestic abuse at Nancy Welch Oct 08, 2017 09:47
--- NOTE | 2017-10-08 15:26 | EKG ---
Date Performed: 10/08/2017 Time Performed: 08:44:40 PTAGE: 62 years EKG: Sinus rhythm BORDERLINE ECG PREVIOUS TRACING : 10/08/2017 05.21 Since previous tracing, no significant change noted DOCTOR: Agustin Romero Interpretating Date/Time 10/08/2017 15:25:13
--- NOTE | 2017-10-08 15:27 | EKG ---
Date Performed: 10/08/2017 Time Performed: 05:21:29 PTAGE: 62 years EKG: Sinus rhythm MINIMAL VOLTAGE CRITERIA FOR LVH, CONSIDER NORMAL VARIANT BORDERLINE ECG NO PREVIOUS TRACING DOCTOR: Agustin Romero Interpretating Date/Time 10/08/2017 15:25:36
== END 2017-10-08 11:29 ==
LOC: NEPC 05:14 → NEDA 06:42 → NEPGCP 08:06
PROVIDERS: ADMIT Internal Medicine Interventional Cardiology; ATTEND Internal Medicine Interventional Cardiology
DX: R07.89 Other chest pain (principal); F17.200 Nicotine dependence, unspecified, uncomplicated; I10 Essential (primary) hypertension; J44.9 Chronic obstructive pulmonary disease, unspecified; E78.5 Hyperlipidemia, unspecified; K21.9 Gastro-esophageal reflux disease without esophagitis; K30 Functional dyspepsia; G30.9 Alzheimer's disease, unspecified; F02.80 Dementia in other diseases classified elsewhere, unspecified severity, without behavioral disturbance, psychotic disturbance, mood disturbance, and anxiety; F41.9 Anxiety disorder, unspecified; F32.9 Major depressive disorder, single episode, unspecified
CPT/HCPCS: 71045; 80053; 82550; 82552; 83690; 83735; 83880; 84484; 85025; 85610; 85730; 93005; 96360; 99285; G0378; J7030